=== PATIENT | male | born 1985 | race African-American/Black ===

== ENCOUNTER 2020-03-03 13:09 | Emergency (ER) | payer BC, SELFPAY ==
[2020-03-03 14:44] VITALS: BP 122/77; PULSE 86; RESP 16; TEMP 37.1; O2SAT 99; BMI 21.4
--- NOTE | 2020-03-03 15:11 | ED_ITS ---
HPI - Abdominal Pain General Chief Complaint: Abdominal Pain Stated Complaint: abd pain Time Seen by Provider: 03/03/20 14:57 Source: patient Mode of arrival: ambulatory Limitations: no limitations History of Present Illness HPI narrative: patient comes to emergency room complaining of vomiting, burning sensation in the upper left quadrant. Patient states yesterday he went to a baby shower and he drank a lot of alcohol. This morning he woke up with burning sensation in his abdomen. He came to the emergency room because his partner made him come to the emergency room. Patient states that he feels better now than this morning, abdominal pain nearly resolved, slightly nauseous. Denies diarrhea, no fever. Related Data Allergies Allergy/AdvReac Type Severity Reaction Status Date / Time No Known Allergies Allergy Unverified 01/25/20 19:40 [No Known Allergies*] cobalt Allergy Unknown Uncoded 05/08/19 00:00 Review of Systems Review of Systems Constitutional : No Weight loss, No Fever, No Chills, No Night Sweats, No Fatigue, No Malaise ENT/Mouth : No Hearing loss, No Ear Pain, No Nasal Congestion, No Sinus Pain, No Hoarseness, No sore throat, No Rhinorrhea, No Swallowing Difficulty Eyes: No Eye Pain, No Swelling, No Redness, No Foreign Body, No Discharge, No Vision Changes Cardiovascular : No Chest Pain, No SOB, No Dyspnea on Exertion, No Orthopnea, No Edema, No Palpitations Respiratory : No Cough, No Sputum, No Wheezing, No Smoke Exposure, No Dyspnea Gastrointestinal : Patient complaining of nausea, vomiting, burning sensation in the left upper quadrant, no abdominal pain Genitourinary : no irregular bleeding, No Dysuria, No Urinary Frequency, No Hematuria, No Urinary Incontinence, No Urgency, No Flank Pain, No Urinary Flow Changes, No Hesitancy Musculoskeletal : No joint pain, No Myalgias, No Joint Swelling Skin : No Skin Lesions, No rash Neuro : No Weakness, No Numbness, No Paresthesias, No Loss of Consciousness, No Dizziness, No Headache Psych : No Anxiety/Panic, No Depression, No SI/HI/AH/VH, No Social Issues, Heme/Lymph: No Bruising, No Bleeding,No Lymphadenopathy Endocrine : No Polyuria, No Polydipsia, No Temperature Intolerance Yes Unobtainable due to mental status Physical Exam Vital Signs: Vital Signs: Vital Signs Temp Pulse Resp BP Pulse Ox 03/03/20 14:44 98.8 F 86 16 122/77 99 Body Mass Index 21.4 Appearance: Alert. Oriented X3. No acute distress. Eyes: Pupils equal, round and reactive to light. ENT: Pharynx normal. Neck: Normal inspection. Neck supple. No lymph nodes noted. No crepitus CVS: Normal heart rate and rhythm. Pulses normal. Normal S1 and S2 Respiratory: No respiratory distress. Breath sounds normal. No Wheezing. No rales Abdomen: Soft and nontender. No rigidity. No distention. good BS x4 Skin: Skin warm and dry. Normal skin color. Normal skin turgor. Extremities: No lower extremity edema. No lower extremity edema. No Lacerations. No Rash Neuro: Oriented X 3. No motor deficit. No sensory deficit. Moving all extermities. No slurred speech. Course Course Course Narrative: patient states that he is feeling better after the GI co cktail. Labs are pending. Sign-out given to Dr. Frances. Anticipating discharge home diagnosis, likely gastritis secondary to to alcohol intake Discharge Plan Discharge Clinical Impression: Acute alcoholic gastritis Patient Disposition: Home, Self-Care Instructions: Gastritis (ED) Additional Instructions: Please follow-up with your primary care physician tomorrow. If you have any worsening or new symptoms, please return to the emergency room or call 911 [facility] Past Medical History Medical History Internal hemorrhoids with complication Social History Social History Alcohol intake: current Alcohol intake frequency: a few times a month Smoking Status: Never smoker Use of substances other than those prescribed or required for medical reasons: No Substance Use Type: Marijuana Advance Directives: No Advance Directives Information Provided: Yes
[2020-03-03] MEDS: Magnesium Hydrox/Alum Hydrox 30 ML ORAL.SUSP PO (15:39)
[2020-03-03] MEDS: Lidocaine HCl Viscous 2 % 15 ML SOLUTION MUCOUS MEM (15:39)
[2020-03-03 16:31] LABS: MANUAL DIFF FLAG NO
[2020-03-03 16:32] LABS: Hematocrit 41.3 % (42-52); Hemoglobin 13.6 g/dl (14.0-18.0); Imm Gran Abs Auto 0.02 X10*3/uL (0.00-0.03); Imm Gran Pct Auto 0.2 % (0.0-0.4); Lymphocytes Absolute Auto 0.8 X10*3/uL (1.2-4.9); Lymphocytes Percent Auto 7.2 % (20-40); Mean Corpuscular HGB Conc 32.9 g/dl (31.0-36.0); Mean Corpuscular Hemoglobin 29.3 pg (27.0-33.0); Mean Platelet Volume 8.9 fL (9.4-12.4); Monocytes Absolute Auto 0.3 X10*3/uL (0.1-1.2); Monocytes Percent Auto 2.9 % (2-11); Neutrophils Absolute Auto 10.1 X10*3/uL (2.0-8.3); Neutrophils Percent Auto 89.7 % (45-73); Platelet Count 261 X10*3/uL (160-400); Red Blood Count 4.64 X10*6/uL (4.60-5.80); Red Cell Distribution Width 12.5 % (11.0-16.0); White Blood Count 11.3 X10*3/uL (4.8-10.8)
--- NOTE | 2020-03-03 16:36 | PC.NURSE ---
Patient denies nausea or vomiting since the medications. Waiting for lab results. Patient aware of plan of care.
[2020-03-03 17:03] LABS: Anion Gap 17 (12-20); Blood Urea Nitrogen 18 mg/dL (9-16); Calcium 9.4 mg/dL (8.4-10.2); Carbon Dioxide 25 mmol/L (22-29); Chloride 102 mmol/L (96-108); Creatinine Clr Calc Pharmacy 119.7; Estimated Glomerular Filt Rate > 60; Glucose Random 79 mg/dL (60-115); Sodium 140 mmol/L (135-145)
[2020-03-03 17:04] LABS: Alanine Aminotransferase 48 U/L (0-40); Albumin Level 4.8 g/dL (3.5-5.0); Alkaline Phosphatase 44 U/L (39-117); Aspartate Amino Transferase 51 U/L (5-37); Bilirubin Direct 0.6 mg/dL (0.0-0.5); Bilirubin Total 1.5 mg/dL (0.0-1.0); Total Protein 7.5 g/dL (6.5-8.0)
[2020-03-03 17:06] LABS: Lipase 29 U/L (8-78)
--- NOTE | 2020-03-03 17:52 | US_ITS ---
EXAMINATION: US ABDOMEN LIMITED CLINICAL INFORMATION: Evaluate for gallbladder disease. COMPARISON: None TECHNIQUE: Real-time imaging of the right upper quadrant abdominal viscera. FINDINGS: PANCREAS: No abnormality demonstrated LIVER: Normal. The liver is normal in size. The liver contour is normal. Parenchymal echogenicity is normal. No focal hepatic lesion. There is no intrahepatic biliary duct dilatation seen. GALLBLADDER: Normal. The gallbladder is physiologically distended without evidence of stones, sludge, polyps, wall thickening or pericholecystic fluid. COMMON BILE DUCT: Normal in caliber measuring 0.2 cm in diameter. RIGHT KIDNEY: Normal. No hydronephrosis. No renal calculi or focal parenchymal lesions. The kidney measures 11.0 cm in maximum dimension. FREE FLUID: None. US/US abdomen limited IMPRESSION: No biliary pathology demonstrated. Specifically no cholelithiasis or biliary dilation
[2020-03-03 18:25] VITALS: BP 133/66; PULSE 100; RESP 16; TEMP 37.1; O2SAT 98
--- NOTE | 2020-03-03 20:05 | PC.NURSE ---
Patient requesting to be d/c. MD aware.
== END 2020-03-03 20:14 | disposition home or self-care (01) ==
PROVIDERS: Emergency Provider Emergency Medicine
DX: K29.20 Alcoholic gastritis without bleeding (principal)
CPT/HCPCS: 36415; 76705; 80048; 80076; 83690; 85025; 99284

== ENCOUNTER 2020-08-19 09:32 | Outpatient (REF) | payer BC, SELFPAY ==
[2020-08-19 10:27] LABS: MANUAL DIFF FLAG NO
[2020-08-19 10:34] LABS: Basophils Percent Auto 0.2 % (0-2); Eosinophils Percent Auto 0.2 % (0-4); Hematocrit 43.2 % (42-52); Imm Gran Abs Auto 0.02 X10*3/uL (0.00-0.03); Imm Gran Pct Auto 0.3 % (0.0-0.4); Lymphocytes Absolute Auto 1.9 X10*3/uL (1.2-4.9); Lymphocytes Percent Auto 31.1 % (20-40); Mean Corpuscular HGB Conc 32.4 g/dl (31.0-36.0); Mean Corpuscular Hemoglobin 29.2 pg (27.0-33.0); Mean Platelet Volume 10.6 fL (9.4-12.4); Monocytes Absolute Auto 0.5 X10*3/uL (0.1-1.2); Monocytes Percent Auto 7.4 % (2-11); Neutrophils Absolute Auto 3.8 X10*3/uL (2.0-8.3); Neutrophils Percent Auto 60.8 % (45-73); Platelet Count 202 X10*3/uL (160-400); Red Cell Distribution Width 12.7 % (11.0-16.0); White Blood Count 6.2 X10*3/uL (4.8-10.8)
[2020-08-19 10:53] LABS: Glucose Urine UA NEG (NEG); Leukocyte Esterase Urine NEG (NEG); Nitrite Urine NEG (NEG); PH 5.5 (5.0-8.0); Specific Gravity - Urine >= 1.030 (1.005-1.025); Urine Blood NEG (NEG); Urine Ketones NEG (NEG); Urine Protein NEG (NEG-TRACE)
[2020-08-19 11:11] LABS: Appearance Urine CLEAR; Color Urine YELLOW
[2020-08-19 11:25] LABS: Syphilis Screen Nonreactive (Nonreactive)
[2020-08-19 11:29] LABS: Alanine Aminotransferase 16 U/L (0-40); Albumin Level 4.5 g/dL (3.5-5.0); Alkaline Phosphatase 37 U/L (39-117); Anion Gap 15 (12-20); Aspartate Amino Transferase 27 U/L (5-37); Bilirubin Total 1.8 mg/dL (0.0-1.0); Blood Urea Nitrogen 14 mg/dL (9-16); Calcium 9.2 mg/dL (8.4-10.2); Carbon Dioxide 23 mmol/L (22-29); Chloride 105 mmol/L (96-108); Cholesterol 132 mg/dL; Estimated Glomerular Filt Rate > 60; Glucose Fasting 89 mg/dL (60-99); HDL Cholesterol 47 mg/dL; LDL Cholesterol Calculated 76 mg/dl; Sodium 139 mmol/L (135-145); Total Protein 7.2 g/dL (6.5-8.0); Triglycerides 45 mg/dL
[2020-08-19 11:41] LABS: TSH reflex Free T4 0.64 uIU/mL (0.32-4.0)
[2020-08-19 13:00] LABS: CT PCR NOT DETECTED (Not Detect.); NG PCR NOT DETECTED (Not Detect.)
[2020-08-20 08:06] LABS: HBS Num1 3.83 mIU/mL (0-7.99); HBsAGNum1 0.33 S/CO (0.00-0.99); Hepatitis B Surface Antigen Negative (Negative); ~Hepatitis B Surface Antibody NONREACTIVE (Nonreactive)
[2020-08-20 08:33] LABS: HBc Num1 0.04 S/CO (0.00-0.79); HIV AB/AG Nonreactive (Nonreactive); HIV Num 1 0.07 S/CO (0.00-0.99); Hepatitis B Core Antibody Nonreactive (Nonreactive); ~Hepatitis C Antibody Nonreactive (Nonreactive)
== END 2020-08-19 09:33 | disposition home or self-care (01) ==
LOC: HO.LAB 09:32
PROVIDERS: PCP Family Medicine; Visit Provider Family Medicine
DX: Z00.00 Encounter for general adult medical examination without abnormal findings (principal); Z11.3 Encounter for screening for infections with a predominantly sexual mode of transmission
CPT/HCPCS: 80053; 80061; 81003; 84443; 85025; 86704; 86706; 86780; 86803; 87340; 87389; 87491; 87591

== ENCOUNTER 2020-09-02 12:22 | Outpatient (REF) | payer BC, SELFPAY ==
[2020-09-02 13:39] LABS: MANUAL DIFF FLAG NO
[2020-09-02 13:49] LABS: Basophils Percent Auto 0.1 % (0-2); Eosinophils Percent Auto 0.1 % (0-4); Hematocrit 43.5 % (42-52); Hemoglobin 14.4 g/dl (14.0-18.0); Imm Gran Abs Auto 0.03 X10*3/uL (0.00-0.03); Imm Gran Pct Auto 0.3 % (0.0-0.4); Lymphocytes Absolute Auto 1.6 X10*3/uL (1.2-4.9); Lymphocytes Percent Auto 16.6 % (20-40); Mean Corpuscular HGB Conc 33.1 g/dl (31.0-36.0); Mean Corpuscular Hemoglobin 29.6 pg (27.0-33.0); Mean Corpuscular Volume 89.5 fL (80-98); Mean Platelet Volume 9.4 fL (9.4-12.4); Monocytes Percent Auto 9.8 % (2-11); Neutrophils Absolute Auto 7.2 X10*3/uL (2.0-8.3); Neutrophils Percent Auto 73.1 % (45-73); Platelet Count 282 X10*3/uL (160-400); Red Blood Count 4.86 X10*6/uL (4.60-5.80); Red Cell Distribution Width 12.8 % (11.0-16.0); White Blood Count 9.8 X10*3/uL (4.8-10.8)
[2020-09-02 14:28] LABS: Alanine Aminotransferase 20 U/L (0-40); Albumin Level 4.6 g/dL (3.5-5.0); Alkaline Phosphatase 46 U/L (39-117); Anion Gap 11 (12-20); Aspartate Amino Transferase 24 U/L (5-37); Blood Urea Nitrogen 15 mg/dL (9-16); Calcium 9.7 mg/dL (8.4-10.2); Carbon Dioxide 28 mmol/L (22-29); Chloride 103 mmol/L (96-108); Cholesterol 122 mg/dL; Estimated Glomerular Filt Rate > 60; Glucose Fasting 86 mg/dL (60-99); HDL Cholesterol 49 mg/dL; LDL Cholesterol Calculated 64 mg/dl; Potassium 4.2 mmol/L (3.3-5.1); Sodium 138 mmol/L (135-145); Total Protein 7.5 g/dL (6.5-8.0); Triglycerides 45 mg/dL
[2020-09-02 14:48] LABS: TSH reflex Free T4 0.49 uIU/mL (0.32-4.0)
[2020-09-02 15:04] LABS: Syphilis Screen Nonreactive (Nonreactive)
[2020-09-02 15:26] LABS: CT PCR NOT DETECTED (Not Detect.); NG PCR NOT DETECTED (Not Detect.)
[2020-09-03 08:26] LABS: HBsAGNum1 0.18 S/CO (0.00-0.99); Hepatitis B Surface Antigen Negative (Negative); ~HepC Num1 0.12 S/CO (0.00-0.79); ~Hepatitis C Antibody Nonreactive (Nonreactive)
[2020-09-03 09:04] LABS: HBS Num1 3.16 mIU/mL (0-7.99); HBc Num1 0.16 S/CO (0.00-0.79); HIV AB/AG Nonreactive (Nonreactive); HIV Num 1 0.12 S/CO (0.00-0.99); Hepatitis B Core Antibody Nonreactive (Nonreactive); ~Hepatitis B Surface Antibody NONREACTIVE (Nonreactive)
== END 2020-09-02 12:23 | disposition home or self-care (01) ==
LOC: HO.WFDLDS 12:22
PROVIDERS: Visit Provider Family Medicine
DX: Z00.00 Encounter for general adult medical examination without abnormal findings (principal); Z11.3 Encounter for screening for infections with a predominantly sexual mode of transmission; Z20.2 Contact with and (suspected) exposure to infections with a predominantly sexual mode of transmission; Z86.2 Personal history of diseases of the blood and blood-forming organs and certain disorders involving the immune mechanism; Z11.4 Encounter for screening for human immunodeficiency virus [HIV]
CPT/HCPCS: 36415; 80053; 80061; 84443; 85025; 86704; 86706; 86780; 86803; 87340; 87389; 87491; 87591

== ENCOUNTER 2022-04-22 20:22 | Emergency (ER) | payer OTHER, SELFPAY ==
[2022-04-22 20:33] VITALS: BP 121/79; PULSE 99; RESP 16; TEMP 37.2; O2SAT 97; BMI 21.5
--- NOTE | 2022-04-22 20:35 | ED.ABDPAIN ---
HPI - Abdominal Pain General Chief Complaint: Abdominal Pain <India Terry NP - Last Filed: 04/22/22 20:37> Stated Complaint: Abdominal Pain <India Terry NP - Last Filed: 04/22/22 20:37> Time Seen by Provider: 04/22/22 23:01 <India Teryr NP - Last Filed: 04/22/22 20:37> Source: patient <Adin Owens MD - Last Filed: 04/22/22 23:36> Mode of arrival: ambulatory <Adin Owens MD - Last Filed: 04/22/22 23:36> Limitations: no limitations <Adin Owens MD - Last Filed: 04/22/22 23:36> History of Present Illness HPI narrative: 37-year-old male who presents emergency department for evaluation of abdominal pain, nausea, vomiting, cough, fever, diarrhea. The patient states that he woke up this morning and had abdominal pain. He points to his epigastric area and describes the pain as a crushing like sensation. He states that the pain resolved and then he went to work. While he was at work the pain returned. He states that the pain was 10/10. He had nausea and vomiting. He states that he vomited at least 6-8 times. He also had for loose stools. He then developed a fever as high as 101 degrees F, chills. He states that he has had a cough which is productive of green phlegm. Was feeling short of breath but he denied chest pain or dyspnea on exertion. The patient points to his epigastric area when asked to localize the abdominal pain. States the pain feels similar to gastritis that he has had in the past. <Adin Owens MD - Last Filed: 04/22/22 23:36> MD elicited complaint: abdominal pain <Adin Owens MD - Last Filed: 04/22/22 23:36> Pertinent past history: gastritis <Adin Owens MD - Last Filed: 04/22/22 23:36> Onset (ago): day(s) (1) <Adin Owens MD - Last Filed: 04/22/22 23:36> Pain Consistency: constant <Adin Owens MD - Last Filed: 04/22/22 23:36> Location: epigastric <Adin Owens MD - Last Filed: 04/22/22 23:36> Severity: severe <Adin Owens MD - Last Filed: 04/22/22 23:36> Pain scale (0-10): 10 <Adin Owens MD - Last Filed: 04/22/22 23:36> Quality: other (Crushing) <Adin Owens MD - Last Filed: 04/22/22 23:36> Radiation: none <Adin Owens MD - Last Filed: 04/22/22 23:36> Migration to: no migration <Adin Owens MD - Last Filed: 04/22/22 23:36> Exacerbating factors: nothing <Adin Owens MD - Last Filed: 04/22/22 23:36> Relieving factors: nothing <Adin Owens MD - Last Filed: 04/22/22 23:36> Associated symptoms: nausea, vomiting, diarrhea, fever and chills <Adin Owens MD - Last Filed: 04/22/22 23:36> Treatments prior to arrival: NSAIDs (Ibuprofen with some relief his pain.) <Adin Ownes MD - Last Filed: 04/22/22 23:36> Related Data Home Medications: Home Medications Medication Instructions Recorded Confirmed cetirizine 10 mg capsule (Zyrtec) 10 mg PO DAILY PRN 08/29/20 Previous Rx's Medication Instructions Recorded ondansetron 4 mg disintegrating 4 mg PO Q6-8H PRN nausea and 04/22/22 tablet vomiting #14 tabs <India Terry NP - Last Filed: 04/22/22 20:37> Allergies/Adverse Reactions: Allergies Allergy/AdvReac Type Severity Reaction Status Date / Time No Known Allergies Allergy Unverified 08/07/20 12:10 [No Known Allergies*] cobalt Allergy Unknown Unknown Uncoded 08/07/20 12:10 <India Terry NP - Last Filed: 04/22/22 20:37> Review of Systems Review of Systems Yes all other systems are reviewed and are negative <Adin Owens MD - Last Filed: 04/22/22 23:36> [facility] Past Medical History [facility] Narrative: Past medical history: Gastritis. Past surgical history: None. Social history: He denies tobacco use, he states that he drinks alcohol 2 times a week. When he drinks alcohol he drinks , he usually drinks Tequila and Elise 4-5 drinks. Patient smokes marijuana daily. <Adin Owens MD - Last Filed: 04/22/22 23:36> Medical History: Medical History Elevated LFTs Internal hemorrhoids with complication <India Terry NP - Last Filed: 04/22/22 20:37> Social History Social History: Social History Alcohol intake: current Alcohol intake frequency: a few times a month Substance Use Type: Marijuana Advance Directives: No <India Terry NP - Last Filed: 04/22/22 20:37> Physical Exam ED Vital Signs: Vital Signs - 24 hr 04/22/22 20:33 Temperature 98.9 F Pulse Rate 99 Respiratory Rate 16 Blood Pressure 121/79 Pulse Oximetry 97 Oxygen Delivery Method Room Air BMI result Body Mass Index 21.5 <India Terry NP - Last Filed: 04/22/22 20:37> Vital Signs - 24 hr 04/22/22 20:33 Temperature 98.9 F Pulse Rate 99 Respiratory Rate 16 Blood Pressure 121/79 Pulse Oximetry 97 Oxygen Delivery Method Room Air BMI result Body Mass Index 21.5 <Adin Owens MD - Last Filed: 04/22/22 23:36> Const Other: Awake, alert, male patient, very pleasant cooperative, does not appear to be in distress, answers all questions appropriate <Adin Owens MD - Last Filed: 04/22/22 23:36> Orientation/consciousness: oriented to person and oriented to place <Adin Owens MD - Last Filed: 12/14/22 23:36> HENMT Head: Yes normal to inspection, Yes normocephalic and Yes atraumatic <Adin Owens MD - Last Filed: 04/22/22 23:36> Ears: external ears normal <Adin Owens MD - Last Filed: 04/22/22 23:36> General nose exam: Normal external nose present <Adin Owens MD - Last Filed: 04/22/22 23:36> Face and sinus: Yes normal facial exam <Adin Owens MD - Last Filed: 04/22/22 23:36> Mouth: Normal oral and palatal mucosa present <Adin Owens MD - Last Filed: 04/22/22 23:36> Throat: Yes posterior oropharynx normal <Adin Owens MD - Last Filed: 04/22/22 23:36> Eyes General: appearance normal, both eyes and all related structures <Adin Owens MD - Last Filed: 04/22/22 23:36> Pupils: Equal, round and reactive pupils present <Adin Owens MD - Last Filed: 04/22/22 23:36> Neck Neck: Yes normal visual inspection, Yes no lymphadenopathy, Yes trachea midline and Yes supple <Adin Owens MD - Last Filed: 04/22/22 23:36> Chest Chest palpation & inspection: normal inspection of the chest and normal palpation of entire chest wall <Adin Owens MD - Last Filed: 04/22/22 23:36> Resp Effort & Inspection: normal respiratory effort and able to speak in complete sentences <Adin Owens MD - Last Filed: 04/22/22 23:36> Auscultation: clear to auscultation bilaterally <MD Jose De Jesus Armando Last Filed: 04/22/22 23:36> Cardio Rate: regular rate <MD Jose De Jesus Armando Last Filed: 04/22/22 23:36> Rhythm: regular rhythm <MD Jose De Jesus Armando Last Filed: 04/22/22 23:36> Heart sounds: S1 normal heart sound present, S2 normal heart sound present and no murmurs <Adin Owens MD - Last Filed: 04/22/22 23:36> GI Inspection: Yes normal to inspection <Adin Owens MD - Last Filed: 04/22/22 23:36> Palpation (GI): Soft to palpation, Tenderness to palpation present (GI) (Mild diffuse tenderness, moderate epigastric tenderness) and no guarding <Adin Owens MD - Last Filed: 04/22/22 23:36> Auscultation: normal bowel sounds <Adin Owens MD - Last Filed: 04/22/22 23:36> General: Yes no CVA tenderness <Adin Owens MD - Last Filed: 04/22/22 23:36> Back/Spine/Pelvis Back: no CVA tenderness <Adin Owens MD - Last Filed: 04/22/22 23:36> Skin General skin exam: no rashes or lesions noted <Adin Owens MD - Last Filed: 04/22/22 23:36> Neuro General: oriented to person and oriented to place <Adin Owens MD - Last Filed: 04/22/22 23:36> Cranial nerves: Yes CN's II-XII intact bilaterally and Yes Equal, round and reactive pupils present <Adin Owens MD - Last Filed: 04/22/22 23:36> Cognition (Neuro): normal cognition <Adin Owens MD - Last Filed: 04/22/22 23:36> Motor exam (neuro): 5/5 motor strength present throughout <Adin Owens MD - Last Filed: 04/22/22 23:36> Extrem General: Yes normal to inspection <Adin Owens MD - Last Filed: 04/22/22 23:36> Psych Appearance: grossly normal <Adin Owens MD - Last Filed: 04/22/22 23:36> Speech and movement: Normal speech and movement present <Adin Owens MD - Last Filed: 04/22/22 23:36> Affect: normal affect <Adin Owens MD - Last Filed: 04/22/22 23:36> Attitude: cooperative <Adin Owens MD - Last Filed: 04/22/22 23:36> Course Course Course Narrative: This is a rapid medical exam. Deferred HPI, ROS, PE to primary provider. 37 yo male healthy here with complaints of generalized abdominal pain, vomiting, diarrhea starting today. No fever, chills, urinary symptoms. WIll check labs, UA, rsv/covid/flu testing. <India Terry NP - Last Filed: 04/22/22 20:37> This is a rapid medical exam. Deferred HPI, ROS, PE to primary provider. 37 yo male healthy here with complaints of generalized abdominal pain, vomiting, diarrhea starting today. No fever, chills, urinary symptoms. WIll check labs, UA, rsv/covid/flu testing. 2311: Course: RME reviewed 37-year-old male who presents emergency department for evaluation of viral-like illness with symptoms including fever, chills, cough, shortness of breath, nausea, vomiting, diarrhea and epigastric abdominal pain. Vital signs were normal. Abdominal exam revealed diffuse tenderness with increased tenderness in the epigastric area. Laboratory evaluation revealed a normal CBC, CMP, negative urinalysis. Patient's COVID-19, RSV and flu were negative. Patient's presentation is consistent with acute viral illness with gastritis. <Adin Owens MD - Last Filed: 04/22/22 23:36> Medical Decision Making Lab Data Result Diagrams: : 04/22/22 21:01 04/22/22 21:01 <India Terry NP - Last Filed: 04/22/22 20:37> Labs: Lab Results 04/22/22 04/22/22 04/22/22 Range/Units 21:01 21:01 21:01 WBC 7.1 (4.8-10.8) X10*3/uL RBC 4.79 (4.60-5.80) X10*6/uL Hgb 14.6 (14.0-18.0) g/dl Hct 42.7 (42.0-52.0) % MCV 89.1 (80.0-98.0) fL MCH 30.5 (27.0-33.0) pg MCHC 34.2 (31.0-36.0) g/dl RDW 12.1 (11.0-16.0) % Plt Count 251 (160-400) X10*3/uL MPV 8.8 L (9.4-12.4) fL Immature Gran % (Auto) 0.3 (0.0-0.4) % Neut % (Auto) 91.1 H (45-73) % Lymph % (Auto) 4.1 L (20-40) % [place] % (Auto) 4.4 (2-11) % Eos % (Auto) 0.0 (0-4) % Baso % (Auto) 0.1 (0-2) % Lymph # (Auto) 0.3 L (1.2-4.9) X10*3/uL [place] # (Auto) 0.3 (0.1-1.2) X10*3/uL Eos # (Auto) 0.0 (0.0-0.4) X10*3/uL Baso # (Auto) 0.0 (0.0-0.2) X10*3/uL Abs Immat Gran (auto) 0.02 (0.00-0.03) X10*3/uL Absolute Neuts (auto) 6.5 (2.0-8.3) x10*3/uL Absolute Nucleated RBC 0.000 (0.0-0.012) X10*3/uL Nucleated RBC % (auto) 0.0 (0.0-0.2) /100WBC Smear Tech's Comments VERIFIED Sodium 139 (135-145) mmol/L Potassium 3.7 (3.3-5.1) mmol/L Chloride 105 (96-108) mmol/L Carbon Dioxide 26 (22-29) mmol/L Anion Gap 12 (12-20) BUN 11 (9-16) mg/dL Creatinine 0.76 (0.5-1.4) mg/dL Estim Creat Clear Calc 130.5 Estimated GFR > 60 Random Glucose 104 (60-115) mg/dL Calcium 9.4 (8.4-10.2) mg/dL Direct Bilirubin 0.6 H (0.0-0.5) mg/dL AST 21 (5-37) U/L ALT 16 (0-40) U/L Alkaline Phosphatase 49 (39-117) U/L Total Protein 7.1 (6.5-8.0) g/dL Albumin 4.4 (3.5-5.0) g/dL Lipase 20 (8-78) U/L Urine Color Urine Appearance Urine pH (5.0-9.0) Ur Specific [place] (1.005-1.025) Urine Protein (Neg-Trace) mg/dL Urine Glucose (UA) (Negative) mg/dL Urine Ketones (Negative) mg/dL Urine Blood (Negative) Urine Nitrite (Negative) Ur Leukocyte Esterase (Negative) Influenza Type A (PCR) NEGATIVE (Negative) Influenza Type B (PCR) NEGATIVE (Negative) RSV RNA Qual (PCR) NEGATIVE (Negative) SARS-CoV-2 RNA (RT-PCR) NEGATIVE (Negative) 04/22/22 Range/Units 21:01 WBC (4.8-10.8) X10*3/uL RBC (4.60-5.80) X10*6/uL Hgb (14.0-18.0) g/dl Hct (42.0-52.0) % MCV (80.0-98.0) fL MCH (27.0-33.0) pg MCHC (31.0-36.0) g/dl RDW (11.0-16.0) % Plt Count (160-400) X10*3/uL MPV (9.4-12.4) fL Immature Gran % (Auto) (0.0-0.4) % Neut % (Auto) (45-73) % Lymph % (Auto) (20-40) % [place] % (Auto) (2-11) % Eos % (Auto) (0-4) % Baso % (Auto) (0-2) % Lymph # (Auto) (1.2-4.9) X10*3/uL [place] # (Auto) (0.1-1.2) X10*3/uL Eos # (Auto) (0.0-0.4) X10*3/uL Baso # (Auto) (0.0-0.2) X10*3/uL Abs Immat Gran (auto) (0.00-0.03) X10*3/uL Absolute Neuts (auto) (2.0-8.3) x10*3/uL Absolute Nucleated RBC (0.0-0.012) X10*3/uL Nucleated RBC % (auto) (0.0-0.2) /100WBC Smear Tech's Comments Sodium (135-145) mmol/L Potassium (3.3-5.1) mmol/L Chloride (96-108) mmol/L Carbon Dioxide (22-29) mmol/L Anion Gap (12-20) BUN (9-16) mg/dL Creatinine (0.5-1.4) mg/dL Estim Creat Clear Calc Estimated GFR Random Glucose (60-115) mg/dL Calcium (8.4-10.2) mg/dL Direct Bilirubin (0.0-0.5) mg/dL AST (5-37) U/L ALT (0-40) U/L Alkaline Phosphatase (39-117) U/L Total Protein (6.5-8.0) g/dL Albumin (3.5-5.0) g/dL Lipase (8-78) U/L Urine Color Yellow Urine Appearance Clear Urine pH 5.5 (5.0-9.0) Ur Specific [place] >= 1.030 H (1.005-1.025) Urine Protein Trace (Neg-Trace) mg/dL Urine Glucose (UA) Negative (Negative) mg/dL Urine Ketones 40 (Negative) mg/dL Urine Blood Negative (Negative) Urine Nitrite Negative (Negative) Ur Leukocyte Esterase Negative (Negative) Influenza Type A (PCR) (Negative) Influenza Type B (PCR) (Negative) RSV RNA Qual (PCR) (Negative) SARS-CoV-2 RNA (RT-PCR) (Negative) <India Terry, CABLE TENDER - Last Filed: 04/22/22 20:37> Lab Results 04/22/22 04/22/22 04/22/22 Range/Units 21:01 21:01 21:01 WBC 7.1 (4.8-10.8) X10*3/uL RBC 4.79 (4.60-5.80) X10*6/uL Hgb 14.6 (14.0-18.0) g/dl Hct 42.7 (42.0-52.0) % MCV 89.1 (80.0-98.0) fL MCH 30.5 (27.0-33.0) pg MCHC 34.2 (31.0-36.0) g/dl RDW 12.1 (11.0-16.0) % Plt Count 251 (160-400) X10*3/uL MPV 8.8 L (9.4-12.4) fL Immature Gran % (Auto) 0.3 (0.0-0.4) % Neut % (Auto) 91.1 H (45-73) % Lymph % (Auto) 4.1 L (20-40) % [place] % (Auto) 4.4 (2-11) % Eos % (Auto) 0.0 (0-4) % Baso % (Auto) 0.1 (0-2) % Lymph # (Auto) 0.3 L (1.2-4.9) X10*3/uL [place] # (Auto) 0.3 (0.1-1.2) X10*3/uL Eos # (Auto) 0.0 (0.0-0.4) X10*3/uL Baso # (Auto) 0.0 (0.0-0.2) X10*3/uL Abs Immat Gran (auto) 0.02 (0.00-0.03) X10*3/uL Absolute Neuts (auto) 6.5 (2.0-8.3) x10*3/uL Absolute Nucleated RBC 0.000 (0.0-0.012) X10*3/uL Nucleated RBC % (auto) 0.0 (0.0-0.2) /100WBC Smear Tech's Comments VERIFIED Sodium 139 (135-145) mmol/L Potassium 3.7 (3.3-5.1) mmol/L Chloride 105 (96-108) mmol/L Carbon Dioxide 26 (22-29) mmol/L Anion Gap 12 (12-20) BUN 11 (9-16) mg/dL Creatinine 0.76 (0.5-1.4) mg/dL Estim Creat Clear Calc 130.5 Estimated GFR > 60 Random Glucose 104 (60-115) mg/dL Calcium 9.4 (8.4-10.2) mg/dL Direct Bilirubin 0.6 H (0.0-0.5) mg/dL AST 21 (5-37) U/L ALT 16 (0-40) U/L Alkaline Phosphatase 49 (39-117) U/L Total Protein 7.1 (6.5-8.0) g/dL Albumin 4.4 (3.5-5.0) g/dL Lipase 20 (8-78) U/L Urine Color Urine Appearance Urine pH (5.0-9.0) Ur Specific [place] (1.005-1.025) Urine Protein (Neg-Trace) mg/dL Urine Glucose (UA) (Negative) mg/dL Urine Ketones (Negative) mg/dL Urine Blood (Negative) Urine Nitrite (Negative) Ur Leukocyte Esterase (Negative) Influenza Type A (PCR) NEGATIVE (Negative) Influenza Type B (PCR) NEGATIVE (Negative) RSV RNA Qual (PCR) NEGATIVE (Negative) SARS-CoV-2 RNA (RT-PCR) NEGATIVE (Negative) 04/22/22 Range/Units 21:01 WBC (4.8-10.8) X10*3/uL RBC (4.60-5.80) X10*6/uL Hgb (14.0-18.0) g/dl Hct (42.0-52.0) % MCV (80.0-98.0) fL MCH (27.0-33.0) pg MCHC (31.0-36.0) g/dl RDW (11.0-16.0) % Plt Count (160-400) X10*3/uL MPV (9.4-12.4) fL Immature Gran % (Auto) (0.0-0.4) % Neut % (Auto) (45-73) % Lymph % (Auto) (20-40) % [place] % (Auto) (2-11) % Eos % (Auto) (0-4) % Baso % (Auto) (0-2) % Lymph # (Auto) (1.2-4.9) X10*3/uL [place] # (Auto) (0.1-1.2) X10*3/uL Eos # (Auto) (0.0-0.4) X10*3/uL Baso # (Auto) (0.0-0.2) X10*3/uL Abs Immat Gran (auto) (0.00-0.03) X10*3/uL Absolute Neuts (auto) (2.0-8.3) x10*3/uL Absolute Nucleated RBC (0.0-0.012) X10*3/uL Nucleated RBC % (auto) (0.0-0.2) /100WBC Smear Tech's Comments Sodium (135-145) mmol/L Potassium (3.3-5.1) mmol/L Chloride (96-108) mmol/L Carbon Dioxide (22-29) mmol/L Anion Gap (12-20) BUN (9-16) mg/dL Creatinine (0.5-1.4) mg/dL Estim Creat Clear Calc Estimated GFR Random Glucose (60-115) mg/dL Calcium (8.4-10.2) mg/dL Direct Bilirubin (0.0-0.5) mg/dL AST (5-37) U/L ALT (0-40) U/L Alkaline Phosphatase (39-117) U/L Total Protein (6.5-8.0) g/dL Albumin (3.5-5.0) g/dL Lipase (8-78) U/L Urine Color Yellow Urine Appearance Clear Urine pH 5.5 (5.0-9.0) Ur Specific [place] >= 1.030 H (1.005-1.025) Urine Protein Trace (Neg-Trace) mg/dL Urine Glucose (UA) Negative (Negative) mg/dL Urine Ketones 40 (Negative) mg/dL Urine Blood Negative (Negative) Urine Nitrite Negative (Negative) Ur Leukocyte Esterase Negative (Negative) Influenza Type A (PCR) (Negative) Influenza Type B (PCR) (Negative) RSV RNA Qual (PCR) (Negative) SARS-CoV-2 RNA (RT-PCR) (Negative) <Adin Owens MD - Last Filed: 04/22/22 23:36> Discharge Plan Discharge Clinical Impression: Viral syndrome Gastritis Qualifiers: Gastritis type: unspecified gastritis Chronicity: acute Gastritis bleeding: without bleeding Qualified Code(s): K29.00 - Acute gastritis without bleeding Vomiting Qualifiers: Vomiting type: unspecified Nausea presence: with nausea Qualified Code(s): R11.2 - Nausea with vomiting, unspecified Fever Qualifiers: Encounter type: initial encounter <India Terry NP - Last Filed: 04/22/22 20:37> Patient Disposition: Home, Self-Care <India Terry NP - Last Filed: 04/22/22 20:37> Instructions: Viral Syndrome (ED), Gastritis (ED) <India Terry NP - Last Filed: 04/22/22 20:37> Additional Instructions: Your CBC, comprehensive metabolic panel and urinalysis were normal. Your COVID-19, RSV and influenza tests were negative. Your symptoms are consistent with a viral infection causing gastritis (inflammation of your stomach), fever, nausea and vomit. Take Zofran ODT 4 mg pills, 1 pill dissolved in your mouth every 8 hours as needed for nausea and vomiting. Take ibuprofen 200 mg pills, 3 pills every 6 hours as needed for pain. Take Tylenol (acetaminophen) 325 mg pills, 2 pills every 4 to 6 hours as needed for pain. Make sure you drink plenty of fluid to stay hydrated. Stay on a SANG diet for the next 1-2 days (bananas, rice, applesauce, tea and toast). Follow-up with your doctor in 2 days. Please return to the emergency department if your symptoms get worse or if you develop any symptoms that are concerning to you. Please see work note <India Terry NP - Last Filed: 04/22/22 20:37> Prescriptions: New ondansetron 4 mg tablet,disintegrating 4 mg PO Q6-8H PRN (Reason: nausea and vomiting) Qty: 14 0RF No Action Zyrtec 10 mg capsule 10 mg PO DAILY PRN <India Terry NP - Last Filed: 04/22/22 20:37> Stand Alone Forms: Work/School Release <India Terry NP - Last Filed: 04/22/22 20:37>
[2022-04-22 21:08] LABS: Basophils Percent Auto 0.1 % (0-2); Hematocrit 42.7 % (42.0-52.0); Hemoglobin 14.6 g/dl (14.0-18.0); Imm Gran Abs Auto 0.02 X10*3/uL (0.00-0.03); Imm Gran Pct Auto 0.3 % (0.0-0.4); Lymphocytes Absolute Auto 0.3 X10*3/uL (1.2-4.9); Lymphocytes Percent Auto 4.1 % (20-40); MANUAL DIFF FLAG SCAN; Mean Corpuscular HGB Conc 34.2 g/dl (31.0-36.0); Mean Corpuscular Hemoglobin 30.5 pg (27.0-33.0); Mean Corpuscular Volume 89.1 fL (80.0-98.0); Mean Platelet Volume 8.8 fL (9.4-12.4); Monocytes Absolute Auto 0.3 X10*3/uL (0.1-1.2); Monocytes Percent Auto 4.4 % (2-11); Neutrophils Absolute Auto 6.5 x10*3/uL (2.0-8.3); Neutrophils Percent Auto 91.1 % (45-73); Platelet Count 251 X10*3/uL (160-400); Red Blood Count 4.79 X10*6/uL (4.60-5.80); Red Cell Distribution Width 12.1 % (11.0-16.0); SCAN SMEAR FLAG 1; White Blood Count 7.1 X10*3/uL (4.8-10.8)
[2022-04-22 21:10] LABS: Appearance Urine Clear; Color Urine Yellow; Glucose Urine UA Negative (Negative); Leukocyte Esterase Urine Negative (Negative); Nitrite Urine Negative (Negative); PH 5.5 (5.0-9.0); Specific Gravity - Urine >= 1.030 (1.005-1.025); Urine Blood Negative (Negative); Urine Ketones 40 mg/dL (Negative); Urine Protein Trace mg/dL (Neg-Trace)
[2022-04-22 21:29] LABS: SLIDE REVIEW VERIFIED
[2022-04-22 21:34] LABS: Alanine Aminotransferase 16 U/L (0-40); Albumin Level 4.4 g/dL (3.5-5.0); Alkaline Phosphatase 49 U/L (39-117); Anion Gap 12 (12-20); Aspartate Amino Transferase 21 U/L (5-37); Bilirubin Direct 0.6 mg/dL (0.0-0.5); Blood Urea Nitrogen 11 mg/dL (9-16); Calcium 9.4 mg/dL (8.4-10.2); Carbon Dioxide 26 mmol/L (22-29); Chloride 105 mmol/L (96-108); Creatinine Clr Calc Pharmacy 130.5; Estimated Glomerular Filt Rate > 60; Glucose Random 104 mg/dL (60-115); Lipase 20 U/L (8-78); Potassium 3.7 mmol/L (3.3-5.1); Sodium 139 mmol/L (135-145); Total Protein 7.1 g/dL (6.5-8.0)
[2022-04-22 21:45] LABS: Influenza A PCR NEGATIVE (Negative); Influenza B PCR NEGATIVE (Negative); Resp Syncy Virus RNA Qual PCR NEGATIVE (Negative); SARS COV2 PCR INHOUSE NEGATIVE (Negative)
[2022-04-22] MEDS: Ondansetron ODT 4 MG TAB.RAPDIS TRANSLINGU (23:52)
[2022-04-23 00:01] LABS: Bilirubin Total 1.8 mg/dL (0.0-1.0)
== END 2022-04-22 23:58 | disposition home or self-care (01) ==
PROVIDERS: Nurse Practitioner Family; Emergency Provider Emergency Medicine Emergency Medical Services; PCP Family Medicine
DX: B34.9 Viral infection, unspecified (principal); K29.00 Acute gastritis without bleeding; R11.2 Nausea with vomiting, unspecified; R50.9 Fever, unspecified; Z20.822 Contact with and (suspected) exposure to COVID-19
CPT/HCPCS: 0241U; 36415; 80048; 80076; 81003; 83690; 85025; 99282; 99283

== ENCOUNTER 2022-04-24 12:15 | Outpatient (REF) | payer OTHER, SELFPAY ==
[2022-04-24 14:28] LABS: MANUAL DIFF FLAG NO
[2022-04-24 14:41] LABS: Basophils Percent Auto 0.2 % (0-2); Eosinophils Percent Auto 0.9 % (0-4); Hematocrit 41.9 % (42.0-52.0); Hemoglobin 13.7 g/dl (14.0-18.0); Imm Gran Abs Auto 0.01 X10*3/uL (0.00-0.03); Imm Gran Pct Auto 0.2 % (0.0-0.4); Lymphocytes Absolute Auto 1.4 X10*3/uL (1.2-4.9); Lymphocytes Percent Auto 31.1 % (20-40); Mean Corpuscular HGB Conc 32.7 g/dl (31.0-36.0); Mean Corpuscular Hemoglobin 30.2 pg (27.0-33.0); Mean Corpuscular Volume 92.5 fL (80.0-98.0); Mean Platelet Volume 9.5 fL (9.4-12.4); Monocytes Absolute Auto 0.4 X10*3/uL (0.1-1.2); Monocytes Percent Auto 9.1 % (2-11); Neutrophils Absolute Auto 2.7 x10*3/uL (2.0-8.3); Neutrophils Percent Auto 58.5 % (45-73); Platelet Count 242 X10*3/uL (160-400); Red Blood Count 4.53 X10*6/uL (4.60-5.80); Red Cell Distribution Width 12.2 % (11.0-16.0); White Blood Count 4.6 X10*3/uL (4.8-10.8)
[2022-04-24 15:55] LABS: Alanine Aminotransferase 19 U/L (0-40); Albumin Level 4.1 g/dL (3.5-5.0); Alkaline Phosphatase 44 U/L (39-117); Anion Gap 12 (12-20); Aspartate Amino Transferase 56 U/L (5-37); Bilirubin Total 0.6 mg/dL (0.0-1.0); Blood Urea Nitrogen 10 mg/dL (9-16); Carbon Dioxide 27 mmol/L (22-29); Chloride 104 mmol/L (96-108); Estimated Glomerular Filt Rate > 60; Glucose Random 85 mg/dL (60-115); Lipase 18 U/L (8-78); Potassium 4.1 mmol/L (3.3-5.1); Sodium 139 mmol/L (135-145); Total Protein 6.4 g/dL (6.5-8.0)
[2022-04-24 16:18] LABS: Syphilis Screen Nonreactive (Nonreactive)
[2022-04-25 16:09] LABS: CT PCR NOT DETECTED (Not Detect.); NG PCR NOT DETECTED (Not Detect.)
[2022-04-29 05:34] LABS: HBS Num1 162.46 mIU/mL (0-7.99); HBc Num1 0.11 S/CO (0.00-0.79); Hepatitis B Core Antibody Nonreactive (Nonreactive); ~HepC Num1 0.12 S/CO (0.00-0.79); ~Hepatitis B Surface Antibody REACTIVE (Nonreactive); ~Hepatitis C Antibody Nonreactive (Nonreactive)
[2022-04-29 06:07] LABS: HBsAGNum1 0.28 S/CO (0.00-0.99); HIV AB/AG Nonreactive (Nonreactive); HIV Num 1 0.07 S/CO (0.00-0.99); Hepatitis B Surface Antigen Negative (Negative)
[2022-04-30 22:38] LABS: HSV 1 IgM IFA Negative (Negative); HSV 2 IgM IFA Negative (Negative)
== END 2022-04-24 12:16 | disposition home or self-care (01) ==
LOC: HO.WFDLDS 12:15
PROVIDERS: Visit Provider Family Medicine
DX: Z00.00 Encounter for general adult medical examination without abnormal findings (principal); Z11.3 Encounter for screening for infections with a predominantly sexual mode of transmission; Z11.4 Encounter for screening for human immunodeficiency virus [HIV]; R10.13 Epigastric pain
CPT/HCPCS: 36415; 80053; 83690; 85025; 86695; 86696; 86704; 86706; 86780; 86803; 87338; 87340; 87389; 87491; 87591